=== PATIENT | male | born 1955 | race Caucasian/White ===

== ENCOUNTER 2017-12-19 15:48 | Inpatient (IN) | payer OTHER ==
[~2017-12-19] VITALS: Ht 167.6 cm; Wt 65.6 kg
[2017-12-19 16:54] LABS: BASOPHILS % (AUTO) 1.2 % (0.0-5.0); EOSINOPHILS % (AUTO) 2.5 % (0.0-8.0); HEMATOCRIT 27.9 % (42-54); LYMPHOCYTES % (AUTO) 12.1 % (21.0-51.0); MEAN CORPUSCULAR HGB CONC 35.5 g/dL (32.0-36.0); MEAN CORPUSCULAR VOLUME 90.3 fL (79-99); MONOCYTES % (AUTO) 19.1 % (3.0-13.0); NEUTROPHILS % (AUTO) 65.1 % (40.0-77.0); NUCLEATED RED BLOOD CELLS 0.1 % (0.0-0.19); PLATELET COUNT (AUTO) 222 K/uL (130-400); RED BLOOD CELL COUNT(AUTO) 3.09 MIL/uL (4.50-6.20); RED CELL DISTRIBUTION WIDTH 12.9 % (11.0-15.5); WHITE BLOOD COUNT (AUTO) 10.4 K/uL (4.8-10.8)
[2017-12-19 17:08] LABS: ALBUMIN 2.5 g/dL (3.5-5.0); BILIRUBIN,TOTAL 0.3 mg/dL (0.2-1.0); TOTAL PROTEIN, SERUM 6.4 g/dL (6.0-8.3)
[2017-12-19 17:11] LABS: INR 1.07 (0.85-1.15); PARTIAL THROMBOPLASTIN TIME 28.5 SEC (26.3-35.5); PROTHROMBIN TIME 11.2 SEC (9.6-11.6)
[2017-12-19 21:45] VITALS: BP 129/67
[2017-12-19] MEDS ORDERED: NITROGLYCERIN 0.4 MG SL TAB SL PRN (23:00)
[2017-12-19] MEDS ORDERED: ACETAMINOPHEN 325 MG TAB PO PRN ×2 (23:00)
[2017-12-19] MEDS ORDERED: VANCOMYCIN 1GM+NS 250ML 250 ML IV SCH (23:00)
[2017-12-19] MEDS ORDERED: HYDRALAZINE HCL 20 MG/ML VIAL IV PRN (23:00)
[2017-12-19] MEDS ORDERED: ONDANSETRON HCL 4 MG/2 ML VIAL IV PRN (23:00)
[2017-12-19] MEDS ORDERED: CEFTRIAXONE 1GM/D5W 50ML 50 ML IV SCH (23:00)
[2017-12-19 23:05] VITALS: BP 136/82
[2017-12-20] MEDS ORDERED: VANCOMYCIN PROTOCOL PER PHARMACY IV SCH (00:15)
[2017-12-20] MEDS: CEFTRIAXONE SODIUM 1 GM IVP SCH (01:02)
[2017-12-20 03:05] VITALS: BP 136/71
[2017-12-20] MEDS: INSULIN HUMULIN R 100 UNIT/ML 3ML SQ SCH ×4 (06:15→20:50)
[2017-12-20 08:01] VITALS: BP 116/66
[2017-12-20] MEDS ORDERED: MAG HYDROX/AL HYDROX/SIMETH ES 30 ML SUSP UDCUP PO PRN (08:15)
[2017-12-20] MEDS ORDERED: HYDRALAZINE HCL 20 MG/ML VIAL IV PRN (08:15)
[2017-12-20] MEDS ORDERED: ACETAMINOPHEN-CODEINE 300/30MG TAB PO PRN (08:15)
[2017-12-20] MEDS ORDERED: ONDANSETRON HCL 4 MG/2 ML VIAL IV PRN (08:15)
[2017-12-20] MEDS ORDERED: MORPHINE SULFATE 2 MG/ML 1ML SYG IV PRN (08:15)
[2017-12-20] MEDS ORDERED: LACTULOSE 20 GM/30 ML UDCUP PO PRN (08:15)
[2017-12-20] MEDS ORDERED: GUAIFENESIN-DM 200/20 MG 10 ML PO PRN (08:15)
[2017-12-20] MEDS ORDERED: ACETAMINOPHEN 325 MG TAB PO PRN ×2 (08:15)
[2017-12-20] MEDS ORDERED: NITROGLYCERIN 0.4 MG SL TAB SL PRN (08:15)
[2017-12-20] MEDS: CARVEDILOL 6.25 MG TABLET PO SCH ×2 (09:00→20:41)
[2017-12-20] MEDS ORDERED: ASPIRIN 325 MG TABLET PO SCH (09:00)
[2017-12-20] MEDS: FAMOTIDINE 20MG TAB 20 MG TAB PO SCH (09:11)
[2017-12-20] MEDS: CLINDAMYCIN 300 MG/D5W 50 ML 50 ML IV SCH ×3 (09:11→20:41)
[2017-12-20] MEDS: ENOXAPARIN SODIUM 40 MG/0.4 ML SYRINGE SQ SCH (09:11)
[2017-12-20] MEDS: ASPIRIN 81MG TAB.CHEW PO SCH (09:11)
[2017-12-20] MEDS: CLOPIDOGREL BISULFATE 75 MG TAB PO SCH (09:11)
[2017-12-20 11:18] VITALS: BP 126/80
[2017-12-20 15:29] VITALS: BP 124/68
[2017-12-20 19:00] VITALS: BP 127/69
[2017-12-20] MEDS: ATORVASTATIN CALCIUM 20 MG TABLET PO SCH (20:41)
[2017-12-20 23:00] VITALS: BP 114/58
[2017-12-21] MEDS: CEFTRIAXONE SODIUM 1 GM IVP SCH (01:52)
[2017-12-21] MEDS: CLINDAMYCIN 300 MG/D5W 50 ML 50 ML IV SCH ×4 (01:56→20:17)
[2017-12-21 03:00] VITALS: BP 122/69
[2017-12-21] MEDS: INSULIN HUMULIN R 100 UNIT/ML 3ML SQ SCH ×4 (06:12→20:42)
[2017-12-21 06:14] LABS: HEMATOCRIT 28.7 % (42-54); MEAN CORPUSCULAR HGB CONC 35.2 g/dL (32.0-36.0); MEAN CORPUSCULAR VOLUME 90.8 fL (79-99); PLATELET COUNT (AUTO) 258 K/uL (130-400); RED BLOOD CELL COUNT(AUTO) 3.16 MIL/uL (4.50-6.20); RED CELL DISTRIBUTION WIDTH 13.4 % (11.0-15.5); WHITE BLOOD COUNT (AUTO) 8.3 K/uL (4.8-10.8)
[2017-12-21 06:23] LABS: CREATININE 6.4 mg/dL (0.5-1.5); POTASSIUM 4.2 mmol/L (3.5-5.1)
[2017-12-21 08:35] VITALS: BP 141/82
[2017-12-21] MEDS: FAMOTIDINE 20MG TAB 20 MG TAB PO SCH (09:00)
[2017-12-21] MEDS: CLOPIDOGREL BISULFATE 75 MG TAB PO SCH (09:00)
[2017-12-21] MEDS: CARVEDILOL 6.25 MG TABLET PO SCH ×2 (09:00→20:17)
[2017-12-21] MEDS: ENOXAPARIN SODIUM 40 MG/0.4 ML SYRINGE SQ SCH (09:00)
[2017-12-21] MEDS: ASPIRIN 81MG TAB.CHEW PO SCH (09:37)
[2017-12-21 11:00] VITALS: BP 121/72
[2017-12-21 16:00] VITALS: BP 139/89
[2017-12-21] MEDS ORDERED: MORPHINE SULFATE 4 MG/1ML SYG IV PRN (16:00)
[2017-12-21] MEDS: FUROSEMIDE 80 MG TABLET PO SCH (17:55)
[2017-12-21 20:00] VITALS: BP 144/88
[2017-12-21] MEDS: ATORVASTATIN CALCIUM 20 MG TABLET PO SCH (20:17)
[2017-12-21] MEDS ORDERED: VANCOMYCIN 1GM+NS 250ML 250 ML IV SCH (21:00)
[2017-12-22] VITALS (16 sets, daily range): BP systolic 108–150; BP diastolic 58–86
[2017-12-22] MEDS: CEFTRIAXONE SODIUM 1 GM IVP SCH (01:42)
[2017-12-22] MEDS: CLINDAMYCIN 300 MG/D5W 50 ML 50 ML IV SCH ×4 (01:44→21:23)
[2017-12-22 04:29] LABS: HEMATOCRIT 27.4 % (42-54); MEAN CORPUSCULAR HEMOGLOBIN 32.1 pg (27.0-33.0); MEAN CORPUSCULAR HGB CONC 35.6 g/dL (32.0-36.0); MEAN CORPUSCULAR VOLUME 90.2 fL (79-99); NUCLEATED RED BLOOD CELLS 0.1 % (0.0-0.19); PLATELET COUNT (AUTO) 256 K/uL (130-400); RED BLOOD CELL COUNT(AUTO) 3.04 MIL/uL (4.50-6.20); RED CELL DISTRIBUTION WIDTH 13.2 % (11.0-15.5); WHITE BLOOD COUNT (AUTO) 9.3 K/uL (4.8-10.8)
[2017-12-22 04:45] LABS: ALBUMIN 2.5 g/dL (3.5-5.0); BILIRUBIN,TOTAL 0.4 mg/dL (0.2-1.0); POTASSIUM 4.6 mmol/L (3.5-5.1); TOTAL PROTEIN, SERUM 6.4 g/dL (6.0-8.3)
[2017-12-22] MEDS: INSULIN HUMULIN R 100 UNIT/ML 3ML SQ SCH ×4 (06:43→21:00)
[2017-12-22] MEDS: CLOPIDOGREL BISULFATE 75 MG TAB PO SCH (09:09)
[2017-12-22] MEDS: FOLIC ACID/VITAMIN B COMP W-C 1 MG CAPSULE PO SCH (09:09)
[2017-12-22] MEDS: FAMOTIDINE 20MG TAB 20 MG TAB PO SCH (09:10)
[2017-12-22] MEDS: CARVEDILOL 6.25 MG TABLET PO SCH ×2 (09:10→21:23)
[2017-12-22] MEDS: ASPIRIN 81MG TAB.CHEW PO SCH (09:10)
[2017-12-22] MEDS: ISOSORBIDE MONO 30MG TAB SR PO SCH (09:10)
[2017-12-22] MEDS: FUROSEMIDE 80 MG TABLET PO SCH ×2 (09:10→17:21)
[2017-12-22] MEDS: ENOXAPARIN SODIUM 40 MG/0.4 ML SYRINGE SQ SCH (14:03)
[2017-12-22 14:49] LABS: APPEARANCE,URINE Clear (CLEAR); BILIRUBIN,URINE Negative (NEGATIVE); COLOR,URINE Yellow (YELLOW); GLUCOSE, URINE (UA) 250 mg/dL (NEGATIVE); KETONES,URINE Trace mg/dL (NEGATIVE); LEUKOCYTE ESTERASE ,URINE Trace (NEGATIVE); NITRATE,URINE Negative (NEGATIVE); OCCULT BLOOD,URINE Small (NEGATIVE); PROTEIN,URINE >=1000 (NEGATIVE)
[2017-12-22 15:06] LABS: BACTERIA,URINE Rare /HPF (None Seen); RBC,URINE 0-1 /HPF (0-1); SQUAMOUS EPITHELIAL CELL,UR Rare /LPF (0-2)
[2017-12-22] MEDS: ATORVASTATIN CALCIUM 20 MG TABLET PO SCH (21:23)
[2017-12-23] MEDS: CLINDAMYCIN 300 MG/D5W 50 ML 50 ML IV SCH ×3 (02:15→14:15)
[2017-12-23] MEDS: CEFTRIAXONE SODIUM 1 GM IVP SCH (02:15)
[2017-12-23 03:00] VITALS: BP 138/78
[2017-12-23 03:53] LABS: HEMATOCRIT 29.1 % (42-54); MEAN CORPUSCULAR HEMOGLOBIN 31.3 pg (27.0-33.0); MEAN CORPUSCULAR HGB CONC 34.2 g/dL (32.0-36.0); MEAN CORPUSCULAR VOLUME 91.6 fL (79-99); PLATELET COUNT (AUTO) 258 K/uL (130-400); RED BLOOD CELL COUNT(AUTO) 3.18 MIL/uL (4.50-6.20); RED CELL DISTRIBUTION WIDTH 13.7 % (11.0-15.5); WHITE BLOOD COUNT (AUTO) 8.5 K/uL (4.8-10.8)
[2017-12-23 03:58] LABS: CREATININE 7.8 mg/dL (0.5-1.5); POTASSIUM 5.1 mmol/L (3.5-5.1)
[2017-12-23 04:37] LABS: BAND NEUTROPHILS % (MANUAL) 4 % (0-2); BASOPHILS % (MANUAL) 3 % (0-2); EOSINOPHILS % (MANUAL) 2 % (1-6); LYMPHOCYTES % (MANUAL) 11 % (22-44); MAN.DIFF COMMENT-IMPRESSION MANUAL DIFFERENTIAL; MONOCYTES % (MANUAL) 13 % (2-9); PLATELET MORPHOLOGY COMMENT ADEQUATE; SEGMENTED NEUTROPHILS % 67 % (40-70)
[2017-12-23] MEDS: INSULIN HUMULIN R 100 UNIT/ML 3ML SQ SCH ×3 (06:06→16:30)
[2017-12-23 07:00] VITALS: BP 146/74
[2017-12-23] MEDS: FUROSEMIDE 80 MG TABLET PO SCH ×2 (08:33→18:07)
[2017-12-23] MEDS: CARVEDILOL 6.25 MG TABLET PO SCH (08:33)
[2017-12-23] MEDS: CLOPIDOGREL BISULFATE 75 MG TAB PO SCH (08:33)
[2017-12-23] MEDS: ASPIRIN 81MG TAB.CHEW PO SCH (08:33)
[2017-12-23] MEDS: FOLIC ACID/VITAMIN B COMP W-C 1 MG CAPSULE PO SCH (08:33)
[2017-12-23] MEDS: FAMOTIDINE 20MG TAB 20 MG TAB PO SCH (08:33)
[2017-12-23] MEDS: ISOSORBIDE MONO 30MG TAB SR PO SCH (08:34)
[2017-12-23] MEDS: ENOXAPARIN SODIUM 40 MG/0.4 ML SYRINGE SQ SCH (08:35)
[2017-12-23 12:00] VITALS: BP 124/71
[2017-12-23 16:00] VITALS: BP 140/73
== END 2017-12-23 20:23 | DRG 603 ==
LOC: EDH 15:48 → EDHIP 19:39 → OBSVTOIN 19:39 → 3BH 20:33
PROVIDERS: ADMIT Family Medicine; ATTEND Family Medicine
DX: L03.113 Cellulitis of right upper limb (principal); E11.21 Type 2 diabetes mellitus with diabetic nephropathy; E11.51 Type 2 diabetes mellitus with diabetic peripheral angiopathy without gangrene; N17.9 Acute kidney failure, unspecified; I12.0 Hypertensive chronic kidney disease with stage 5 chronic kidney disease or end stage renal disease; E87.2 Acidosis; I69.354 Hemiplegia and hemiparesis following cerebral infarction affecting left non-dominant side; N18.5 Chronic kidney disease, stage 5; W18.30XA Fall on same level, unspecified, initial encounter; B18.2 Chronic viral hepatitis C; E78.5 Hyperlipidemia, unspecified; E11.22 Type 2 diabetes mellitus with diabetic chronic kidney disease; Z91.15 Patient's noncompliance with renal dialysis; D64.9 Anemia, unspecified; I25.10 Atherosclerotic heart disease of native coronary artery without angina pectoris; Z95.1 Presence of aortocoronary bypass graft; Z95.5 Presence of coronary angioplasty implant and graft; Z91.19 Patient's noncompliance with other medical treatment and regimen; Z79.82 Long term (current) use of aspirin; Z79.02 Long term (current) use of antithrombotics/antiplatelets; Z75.1 Person awaiting admission to adequate facility elsewhere; Y93.89 Activity, other specified; Y92.89 Other specified places as the place of occurrence of the external cause; Y99.8 Other external cause status
CPT/HCPCS: 36415; 70450; 71045; 80048; 80053; 81001; 82948; 84100; 84484; 85025; 85027; 85610; 85730; 87040; 87088; 93005; 97039; A4218; J0696; J1650; J1815; J2405; J3370; J3490